=== PATIENT | male | born 1945 | race Two or more races ===

== ENCOUNTER 2019-04-08 07:38 | Outpatient (CLI) | payer OTHER | END 2019-04-08 07:44 | disposition home or self-care (01) | LOC: SONOGRAMA 07:38 | DX: R97.21 Rising PSA following treatment for malignant neoplasm of prostate (principal); C61 Malignant neoplasm of prostate; R31.1 Benign essential microscopic hematuria ==

== ENCOUNTER → 2021-01-14 07:12 | Outpatient (CLI) | payer OTHER | END | disposition home or self-care (01) | LOC: NUCLEAR 07:12 | PROVIDERS: ATTEND Urology | DX: C61 Malignant neoplasm of prostate (principal); R97.21 Rising PSA following treatment for malignant neoplasm of prostate | CPT/HCPCS: 78803; A9503 ==

== ENCOUNTER 2021-01-21 07:12 | Outpatient (CLI) | payer OTHER | END 2021-01-21 07:15 | disposition home or self-care (01) | LOC: TOM 07:12 | PROVIDERS: ATTEND Urology | DX: K57.90 Diverticulosis of intestine, part unspecified, without perforation or abscess without bleeding (principal); J90 Pleural effusion, not elsewhere classified; R97.21 Rising PSA following treatment for malignant neoplasm of prostate; C61 Malignant neoplasm of prostate ==

== ENCOUNTER 2023-05-18 07:22 | Outpatient (CLI) | payer OTHER | END 2023-05-18 07:32 | disposition home or self-care (01) | LOC: TOM 07:22 | PROVIDERS: ATTEND Urology | DX: C61 Malignant neoplasm of prostate (principal); R31.0 Gross hematuria | CPT/HCPCS: 74178; Q9965 ==